=== PATIENT | female | born 1965 | race Caucasian/White ===

== ENCOUNTER 2017-04-09 11:48 | Emergency (ER) | payer BC ==
[2017-04-09 11:55] VITALS: BP 129/87; PULSE 84; TEMP 98; BMI 29.2
--- NOTE | 2017-04-09 12:07 | PDOC ---
Attending Attestation - Resident Resident Name: Celine Mena - ED Attending Attestation I have performed the following: I have examined & evaluated the patient, The case was reviewed & discussed with the resident, I agree w/resident's findings & plan, Exceptions are as noted - HPI HPI: 51 yo F history HTN, HL presents s/p mechanical fall. She states that she slipped on soapy material on the shower, fell sideways, hitting her R hip on the tub as she went down. No head injury, no LOC. She c/o R low back pain, unable to ambulate due to pain. She states she took motrin 800 mg prior to arrival without relief. No other injuries. Denies weakness, numbness. - Physicial Exam PE: GENERAL: Awake, alert, and fully oriented. Appears uncomfortable. HEAD: No signs of trauma EYES: PERRLA, EOMI, sclera anicteric, conjunctiva clear ENT: Auricles normal inspection, hearing grossly normal, nares patent, oropharynx clear without exudates. Moist mucosa NECK: Normal ROM, supple, no lymphadenopathy, JVD, or masses LUNGS: Breath sounds equal, clear to auscultation bilaterally. No wheezes, and no crackles HEART: Regular rate and rhythm, normal S1 and S2, no murmurs, rubs or gallops ABDOMEN: Soft, nontender, normoactive bowel sounds. No guarding, no rebound. No masses EXTREMITIES: Normal range of motion, no edema. No clubbing or cyanosis. No cords, erythema, or tenderness NEUROLOGICAL: Cranial nerves II through XII grossly intact. Normal speech, normal gait SKIN: Warm, Dry, normal turgor, no rashes or lesions noted. SPINE: +Midline spinal tenderness at L5/S1. +Tenderness over R iliac wing. - Medical Decision Making 51 yo F presents s/p mechanical fall c/o R hip pain and low back pain. Awaiting XR to further evaluate.
--- NOTE | 2017-04-09 12:14 | PDOC ---
History of Present Illness - General Chief Complaint: Pain, Acute Stated Complaint: FALL RIGHT HIP Time Seen by Provider: 04/09/17 11:56 - History of Present Illness Initial Comments: 04/09/17 12:14 CC: Mechanical Fall injuring R hip and lower back Patient is a 51 y.o. female with a PMH of HTN and HLD who presents to the ED today after a mechanical fall in the shower. Patient states she slipped on the soapy floor in the shower and fell hitting the R side of her thigh and lower back on the edge of tub. Patient denies any head trauma or loss of consciousness. Patient states she was planning on going to urgent care, however, she felt a "hot searing" pain in her lower back and she became concerned and called EMS. Patient denies any urinary incontinence and can ambulate with pain. Past History - Past Medical History Allergies/Adverse Reactions: Allergies Allergy/AdvReac Type Severity Reaction Status Date / Time meperidine HCl [From Demerol] Allergy Verified 04/09/17 11:55 Home Medications: Ambulatory Orders Losartan 50Mg/Hctz 12.5MG [Hyzaar -] 1 tab PO DAILY 04/09/17 Oxycodone HCl/Acetaminophen [Percocet 5-325 mg Tablet] 1 tab PO Q6H PRN #12 tablet MDD 4 tabs 04/09/17 Simvastatin 20 mg PO ASDIR 04/09/17 HTN: Yes Other medical history: denies - Immunization History Immunization Up to Date: Yes - Psycho/Social/Smoking Cessation Hx Suicidal Ideation: No Smoking History: Never smoked Review of Systems - Review of Systems Constitutional: No: Chills, Diaphoresis, Fever, Malaise HEENTM: No: Hearing Loss, Throat Pain, Difficulty Swallowing Respiratory: No: Cough, Shortness of Breath, Productive cough, Hemoptysis Cardiac (ROS): No: Chest Pain, Edema, Lightheadedness, Palpitations ABD/GI: No: Constipated, Diarrhea, Nausea, Vomiting, Abdominal cramping : No: Burning, Dysuria, Hematuria, Urgency Musculoskeletal: Yes: Back Pain, Muscle Pain Integumentary: No: Bruising, Erythema, Lesions, Pruritus Neurological: No: Headache, Numbness, Paresthesia, Weakness Psychiatric: No: Anxiety, Depression All Other Systems: Reviewed and Negative *Physical Exam - Vital Signs Last Vital Signs Temp Pulse Resp BP Pulse Ox 98 F 84 20 129/87 96 04/09/17 11:52 04/09/17 11:52 04/09/17 11:52 04/09/17 11:52 04/09/17 11:52 - Physical Exam General Appearance: Yes: Nourished, Appropriately Dressed HEENT: positive: EOMI, DALE Neck: positive: Trachea midline, Supple Respiratory/Chest: positive: Lungs Clear, Normal Breath Sounds Cardiovascular: positive: Regular Rhythm, Regular Rate, S1, S2 Vascular Pulses: Dorsalis-Pedis (R): 4+, Doralis-Pedis (L): 4+ Gastrointestinal/Abdominal: positive: Normal Bowel Sounds, Soft Musculoskeletal: positive: Normal Inspection, Vertebral Tenderness (TTP @ S5, L1 ) Extremity: positive: Normal Capillary Refill, Normal Inspection, Normal Range of Motion, Other Integumentary: positive: Normal Color, Dry, Warm Neurologic: 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 female who presents via EMS following a mechanical fall in the shower in which she hit her R femur and lower back on the side of the bathtub. On PE patient is hemodynamically stable and has full ROM, 5/5 strength in her B/L LE. Differential diagnosis includes pelvic fracture vs. R femur fracture vs. sacral contusion. Imaging of RLE was negative for any acute fracture and patient was discharged home with Percocet for pain control. *DC/Admit/Observation/Transfer Diagnosis at time of Disposition: Fall Qualifiers: Encounter type: initial encounter Qualified Code(s): W19.XXXA - Unspecified fall, initial encounter - Discharge Dispostion Disposition: HOME Condition at time of disposition: Good Admit: No - Prescriptions Prescriptions: Oxycodone HCl/Acetaminophen [Percocet 5-325 mg Tablet] 1 tab PO Q6H PRN #12 tablet MDD 4 tabs PRN Reason: Severe Pain - Referrals Referrals: Andres Curtis [Primary Care Provider] - - Patient Instructions Printed Discharge Instructions: DI for Low Back Pain Additional Instructions: Please return to the ED if you have any severe pain, urinary incontinence or loss of bowel function. - Attestations Physician Attestion: 04/09/17 13:32 I, Dr. Celine Mena, attest that this document has been prepared under my direction and personally reviewed by me in its entirety. I further attest, that it accurately reflects all work, treatment, procedures and medical decision -making performed by me.
[2017-04-09] MEDS ORDERED: traMADol HCL 50 MG TABLET PO ONE (12:40)
[2017-04-09] MEDS ORDERED: traMADol HCL 50 MG TABLET ONE (12:41)
== END 2017-04-09 14:20 | disposition home or self-care (01) ==
LOC: JER 11:48
DX: M54.5 Low back pain (principal); W18.39XA Other fall on same level, initial encounter; Y93.89 Activity, other specified; Y92.9 Unspecified place or not applicable; I10 Essential (primary) hypertension; E78.00 Pure hypercholesterolemia, unspecified
CPT/HCPCS: 72070-TC; 72100-TC; 73523-TC; 84703; 99283-25